=== PATIENT | female | born 1960 | race Caucasian/White ===

== ENCOUNTER 2021-07-26 05:30 | Day surgery (SDC) | payer BC ==
[~2021-07-26] VITALS: Ht 160 cm; Wt 90.7 kg
[2021-07-26] MEDS ORDERED: SEVOFLURANE 15 MIN GAS INH ONE (07:46)
[2021-07-26] MEDS ORDERED: PROPOFOL 200MG/ 20ML VIAL (DIPRIVAN) IV ONE (07:46)
[2021-07-26] MEDS ORDERED: KETOROLAC TROMETHAMINE 30 MG VIAL IVP ONE (07:46)
[2021-07-26] MEDS ORDERED: fentaNYL CITRATE/PF 100 MCG/2 ML AMP IVP ONE (07:46)
[2021-07-26] MEDS ORDERED: MIDAZOLAM HCL 5 MG/5 ML VIAL IVP ONE (07:46)
[2021-07-26] MEDS ORDERED: NS 1000 ML IV.SOLN IV ONE (07:46)
[2021-07-26] MEDS ORDERED: LR 1,000 ML IV.SOLN IV ONE (07:46)
[2021-07-26] MEDS ORDERED: ONDANSETRON HCL 4 MG/2 ML VIAL IVP ONE (07:46)
[2021-07-26] MEDS ORDERED: ONDANSETRON HCL 4 MG/2 ML VIAL IVP PRN (08:15)
[2021-07-26] MEDS ORDERED: HYDROmorphone 1 MG/ML INJ. CARTRIDGE IVP PRN (08:15)
[2021-07-26] MEDS ORDERED: KETOROLAC TROMETHAMINE 30 MG VIAL IVP PRN (08:15)
[2021-07-26] MEDS ORDERED: IBUPROFEN 600 MG TABLET PO ONE (08:15)
[2021-07-26] MEDS ORDERED: ONDANSETRON HCL 4 MG/2 ML VIAL IM PRN (08:45)
[2021-07-26] MEDS ORDERED: IBUPROFEN 800 MG TABLET PO PRN (08:45)
[2021-07-26] MEDS ORDERED: OXYCODONE/ACETAMINOPHEN 5-325 TABLET PO PRN ×2 (08:45)
[2021-07-26 11:55] VITALS: BP_SYST 142
== END 2021-07-26 10:20 | disposition home or self-care (01) ==
LOC: SDS 05:30 → SMU 05:30 → SDS 10:20
PROVIDERS: ATTEND Obstetrics & Gynecology
DX: N95.0 Postmenopausal bleeding (principal); N94.89 Other specified conditions associated with female genital organs and menstrual cycle; R93.89 Abnormal findings on diagnostic imaging of other specified body structures; I10 Essential (primary) hypertension; K21.9 Gastro-esophageal reflux disease without esophagitis; E66.01 Morbid (severe) obesity due to excess calories; Z79.82 Long term (current) use of aspirin; Z79.899 Other long term (current) drug therapy; Z20.822 Contact with and (suspected) exposure to COVID-19
CPT/HCPCS: 36415 ×2; 58558; 87426; 87635; 88305; C1819; J1885; J2250; J2405; J2704; J3010; J7030; J7120; U0003